=== PATIENT | male | born 1935 | race Caucasian/White ===

== ENCOUNTER 2018-04-06 13:01 | Observation (INO) | payer MEDICARE, BC ==
[~2018-04-06] VITALS: Ht 170.2 cm; Wt 83.3 kg
[2018-04-06] VITALS (9 sets, daily range): BP systolic 117–179; BP diastolic 7–86; PULSE 47–71; TEMP 97.6–98.3
[~2018-04-06 13:01] MED LIST: CRESTOR 10MG10 MG PO; EPA FISH OIL1000 MG PO; LUTEIN PO; MULTIPLE VITAMI1 CAP PO; NORCO 325 MG-51 TAB PO; PRINIVIL10 MG PO; SENOKOT S 50 MG1 TAB PO; TOPROL XL 25MG25 MG PO; VITAMIN C500 MG PO; VITAMIN D 400400 IU PO; VYTORIN 10 MG-41 TAB PO; ZESTRIL 20MG TA20 MG PO
--- NOTE | 2018-04-06 13:30 | NUR ---
DR FERNANDEZ HERE AND TALKED WITH PATIENT CALL LIGHT IN REACH
[2018-04-06] MEDS ORDERED: LIPITOR 80MG80 MG PO (13:51)
[2018-04-06] MEDS ORDERED: TOPROL XL 50MG50 MG PO (13:51)
[2018-04-06] MEDS ORDERED: BENICAR 20MG TA20 MG PO (13:53)
[2018-04-06] MEDS ORDERED: ASPIRIN 81M81 MG/TA2 PO (13:53)
[2018-04-06] MEDS ORDERED: LUTEIN6 MG PO (13:55)
--- NOTE | 2018-04-06 13:57 | NUR ---
SON AT BEDSIDE
--- NOTE | 2018-04-06 17:40 | NUR ---
PATIENT ARRIVED TO ROOM 332 VIA BED FROM THE PACU. PATIENT IS A&O. POST-OP VSS. PATIENT TOLERATING CLEAR LIQUIDS WITHOUT COMPLAINTS OF N/V. PATIENT DIET ADVANCED TO GENERAL. IV FLUIDS INFUSING TO LEFT WRIST IV VIA GRAVITY TUBING. RODIRGUEZ CATHETER TO DEPENDENT DRAINAGE WITH SCANT AMOUNTS OF BLOODY DRAINAGE PRESENT IN CATHETER BAG. CALL LIGHT WITHIN REACH. SON PRESENT AT THE BEDSIDE. PATIENT DENIES ANY OTHER NEEDS AT THIS TIME.
--- NOTE | 2018-04-06 19:25 | NUR ---
PT RESTING IN BED. O3 2L NC. DENIES PAIN AT THIS TIME. BLOODY DRG FROM URETHRA AND RODRIGUEZ WELL. IVFS INFUSING PER PUMP. CALL LIGHT IN REACH.
--- NOTE | 2018-04-06 19:36 | NUR ---
REPORT GIVEN TO JACINDA RODRIGUES.
[2018-04-07 03:43] VITALS: BP 138/58; PULSE 64; TEMP 98.2
--- NOTE | 2018-04-07 08:00 | NUR ---
PATIENT IS SITTING UP IN BED THIS MORNING WITH HIS SON AT THE BEDSIDE. PATIENT IS A&O. IRREGULAR HEART RHYTHM WITH EXTRA HEART BEAT NOTED, OTHERWISE VSS. BOWEL SOUNDS ACTIVE ALL FOUR QUADRANTS. PATIENT TOLERATING FOOD & LIQUIDS WITHOUT ANY COMPLAINTS OF N/V. ALL LUNG DON COARSE UPON AUSCULTATION. PATIENT DENIES SHORTNESS OF BREATH OR PRODUCTIVE COUGH. LEFT WRIST TO INT. RODRIGUEZ CATHETER TO DEPENDENT DRAINAGE WITH LARGE AMOUNTS OF BLOODY URINE WITH CLOTS PRESENT IN RODRIGUEZ BAG. DRIED BLOOD PRESENT ON GAUZE AT TIP OF PENIS AND CATHETER INSERTION SITE. BREAKFAST TRAY ORDERED. PATIENT DENIES ANY PAIN THIS MORNING. CALL LIGHT WITHIN REACH. NO OTHER NEEDS AT THIS TIME.
[2018-04-07 08:23] VITALS: BP 144/61; PULSE 76; TEMP 98.2
[2018-04-07 11:41] VITALS: BP 133/65; PULSE 59; TEMP 98.2
--- NOTE | 2018-04-07 11:50 | NUR ---
Initial visit; Patient thanked [employer] for stopping and wishing him well. He hopes to be discharged this afternoon.
--- NOTE | 2018-04-07 14:20 | NUR ---
PATIENT'S LEFT FOREARM INT DC'D PER PENDING DISCHARGE. PATIENT TOLERATED WELL. DISCHARGE INSTRUCTIONS REVIEWED WITH PATIENT AND SON. RODRIGUEZ AND LEG BAG TEACHING COMPLETE. CATHETER CHANGED OVER TO LEG BAG FOR DISCHARGE. ALL QUESTIONS ANSWERED. PATIENT PERSONAL BELONGINGS GATHERED.
--- NOTE | 2018-04-07 14:50 | NUR ---
PATIENT AMBULATED TO PERSONAL VEHICLE WITH SURGICAL STAFF. PATIENT DISCHARGED.
== END 2018-04-07 14:50 | disposition home or self-care (01) ==
LOC: SDCO 13:01 → JCC 16:56
PROVIDERS: ADMIT Urology
DX: N21.0 Calculus in bladder (principal); I25.10 Atherosclerotic heart disease of native coronary artery without angina pectoris; F32.9 Major depressive disorder, single episode, unspecified; E78.5 Hyperlipidemia, unspecified; I10 Essential (primary) hypertension; G47.00 Insomnia, unspecified; Z79.82 Long term (current) use of aspirin; Z82.61 Family history of arthritis; Z82.49 Family history of ischemic heart disease and other diseases of the circulatory system; Z82.3 Family history of stroke; Z80.43 Family history of malignant neoplasm of testis; Z88.8 Allergy status to other drugs, medicaments and biological substances
CPT/HCPCS: G0378; G0379; J0690; J1100; J1956; J2405; J2704; J3010; J7120

== ENCOUNTER 2018-04-08 09:18 | Emergency (ER) | payer MEDICARE, BC ==
[~2018-04-08] VITALS: Ht 170.2 cm; Wt 83.6 kg
[~2018-04-08 09:18] MED LIST changes: +ASPIRIN 81M81 MG/TA2 PO; +BENICAR 20MG TA20 MG PO; +LIPITOR 80MG80 MG PO; +LUTEIN6 MG PO; +TOPROL XL 50MG50 MG PO
[2018-04-08 09:22] VITALS: TEMP 97.7
[2018-04-08 11:15] VITALS: BP 159/94; PULSE 54
== END 2018-04-08 11:16 | disposition home or self-care (01) ==
LOC: COL.ER 09:18
DX: T83.098A Other mechanical complication of other urinary catheter, initial encounter (principal); Z79.82 Long term (current) use of aspirin

== ENCOUNTER → 2023-12-13 | Outpatient (CLI) | payer MEDICARE, BC ==
[~2023-12-13] MED LIST changes: +Iohexol 300 - 100 ML VIAL IV ONE; +NS 100 ML IV SCH
== END ==
LOC: COL.RAD 10:10
DX: N21.0 Calculus in bladder (principal); N40.0 Benign prostatic hyperplasia without lower urinary tract symptoms; K80.20 Calculus of gallbladder without cholecystitis without obstruction; K44.9 Diaphragmatic hernia without obstruction or gangrene
CPT/HCPCS: Q9967